=== PATIENT | male | born 1940 | race Caucasian/White ===

== ENCOUNTER → 2016-06-09 | Outpatient (CLI) | payer MEDICARE, BC ==
[~2016-06-09] MED LIST: AVOD0.5C PO; HYDR12.56 PO; PRIN20TA2 PO; TAMS0.4C4 PO; TAMS0.4C67 PO; TAMS5CAP PO
[2016-06-09 12:42] LABS: AUTOMATED NEUTROPHIL # 3.5 TH/MM3 (1.8-7.7); BASOPHIL % 0.2 % (0.0-2.0); EOSINOPHIL # 0.1 TH/MM3 (0-0.4); EOSINOPHIL % 1.2 % (0.0-4.0); HEMATOCRIT 41.7 % (39.0-51.0); HEMO FLAGS DIFF FINAL; LYMPH % 29.7 % (9.0-44.0); LYMPHOCYTE # 1.7 TH/MM3 (1.0-4.8); MEAN CELL VOLUME 93.5 FL (80.0-100.0); MEAN CORPUSCULAR HEMOGLOBIN 32.5 PG (27.0-34.0); MEAN CORPUSCULAR HGB CONC 34.7 % (32.0-36.0); MONO % 7.8 % (0.0-8.0); NEUT % 61.1 % (16.0-70.0); PLATELET COUNT 167 TH/MM3 (150-450); RED BLOOD COUNT 4.46 MIL/MM3 (4.50-5.90); RED CELL DISTRIBUTION WIDTH 13.2 % (11.6-17.2); WHITE BLOOD COUNT 5.8 TH/MM3 (4.0-11.0)
[2016-06-09 13:19] LABS: ANION GAP 8 MEQ/L (5-15); AST (GOT) 18 U/L (15-37); BLOOD UREA NITROGEN 16 MG/DL (7-18); CHLORIDE 106 MEQ/L (98-107); GLOMERULAR FILTRATION RATE 56 ML/MIN (>89); GLUCOSE,FASTING 93 MG/DL (74-99); SODIUM (NA) 142 MEQ/L (136-145)
[2016-06-09 13:30] LABS: ALKALINE PHOSPHATASE 81 U/L (45-117); ALT (GPT) 14 U/L (12-78); HDL CHOLESTEROL 53.8 MG/DL (40.0-60.0); LDL CHOLESTEROL 93 MG/DL (0-99); THYROXINE (T4) 8.3 MCG/DL (4.5-12.1); TOTAL BILIRUBIN ADULT 0.5 MG/DL (0.2-1.0)
[2016-06-09 14:07] LABS: HEMOGLOBIN A1b 1.6 %; HEMOGLOBIN Ao 85.4 %; HEMOGLOBIN LA1C 1.9 %; HEMOGLOBIN P3 3.8 %
== END ==
LOC: PLAB 09:48
PROVIDERS: ATTEND Urology
DX: I10 Essential (primary) hypertension (principal); E78.2 Mixed hyperlipidemia; E03.8 Other specified hypothyroidism; R53.83 Other fatigue; E55.9 Vitamin D deficiency, unspecified; Z79.899 Other long term (current) drug therapy; N40.1 Benign prostatic hyperplasia with lower urinary tract symptoms
CPT/HCPCS: 36415; 80053; 80061; 82306; 83036; 84153; 84436; 84443; 84480; 85025